=== PATIENT | female | born 1975 | race Caucasian/White ===

== ENCOUNTER → 2016-10-03 | Emergency (ER) | payer OTHER ==
[~2016-10-03] VITALS: Ht 167.6 cm; Wt 104.3 kg
[~2016-10-03] MED LIST: ALPR0.5T3; ATOR1TAB21; BUDE150T; CITA40TA4; FLUO20CA9; GABA-283 PO; IBUP600T26 PO; METO-346 PO; SOMA350T PO; SUBO8MIS; TRAZ50TA
[2016-10-03 15:58] VITALS: BP 111/64
== END | disposition home or self-care (01) ==
LOC: M ED 17:00
DX: S39.012A Strain of muscle, fascia and tendon of lower back, initial encounter (principal); X50.9XXA Other and unspecified overexertion or strenuous movements or postures, initial encounter; Y92.89 Other specified places as the place of occurrence of the external cause; Y93.89 Activity, other specified; Y99.0 Civilian activity done for income or pay; I10 Essential (primary) hypertension; F17.200 Nicotine dependence, unspecified, uncomplicated; Z79.899 Other long term (current) drug therapy

== ENCOUNTER 2016-10-15 18:13 | Emergency (ER) | payer OTHER ==
[~2016-10-15] VITALS: Ht 167.6 cm; Wt 104.3 kg
[2016-10-15 18:14] VITALS: BP 125/81
--- NOTE | 2016-10-16 10:33 | REP ---
PA CHEST WITH LEFT RIBS: 10/15/2016. Clinical history: Left anterior lower rib pain. Findings: No prior study. The lungs are well inflated. The CP angles sharply defined. There is no pleural effusion, lateral pleural thickening or apical scarring. Some minor underlying interstitial changes suggested. Heart not enlarged. Yasemin symmetric. There are two anchors overlying the right shoulder from prior shoulder surgery. No pneumothorax or pleural effusion on either side. Left ribs: Posterior rib articulations were intact. The clavicle, scapula and humerus are unremarkable. There are degenerative disc and marginal osteophyte changes at multiple levels in the thoracic spine. No focal rib lesion, displaced fracture, pleural effusion, pleural thickening or pneumothorax. Impression: 1. No visible or displaced rib fracture, focal rib lesion, effusion or pneumothorax. 2. PA chest without acute finding. Signed by Victor Manuel Chavez MD 10/16/2016 08:21 P
== END 2016-10-15 22:26 | disposition home or self-care (01) ==
LOC: M ED 21:54
DX: S29.011A Strain of muscle and tendon of front wall of thorax, initial encounter (principal); X58.XXXA Exposure to other specified factors, initial encounter; Y92.89 Other specified places as the place of occurrence of the external cause; Y93.89 Activity, other specified; Y99.8 Other external cause status; F11.10 Opioid abuse, uncomplicated; F41.9 Anxiety disorder, unspecified; I10 Essential (primary) hypertension; F17.210 Nicotine dependence, cigarettes, uncomplicated; Z79.899 Other long term (current) drug therapy; F32.9 Major depressive disorder, single episode, unspecified
CPT/HCPCS: 71101; 96372; 99281; J3360

== ENCOUNTER 2018-05-10 11:12 | Emergency (ER) | payer OTHER ==
[2018-05-10] MEDS: KETOROLAC TROMETHAMINE 10 MG TAB PO (11:34)
== END 2018-05-10 12:23 | disposition home or self-care (01) ==
LOC: M ED 11:12
DX: S83.92XA Sprain of unspecified site of left knee, initial encounter (principal); X50.0XXA Overexertion from strenuous movement or load, initial encounter; Y92.009 Unspecified place in unspecified non-institutional (private) residence as the place of occurrence of the external cause; M25.762 Osteophyte, left knee; I10 Essential (primary) hypertension; F11.11 Opioid abuse, in remission; F41.9 Anxiety disorder, unspecified; F33.9 Major depressive disorder, recurrent, unspecified; F17.200 Nicotine dependence, unspecified, uncomplicated; Z79.899 Other long term (current) drug therapy
CPT/HCPCS: 73564

== ENCOUNTER 2018-08-18 10:57 | Emergency (ER) | payer OTHER ==
[~2018-08-18] VITALS: Ht 167.6 cm; Wt 95.5 kg
[~2018-08-18 10:57] MED LIST changes: +FLUO20CA19; -FLUO20CA9; -GABA-283 PO; +GABA-845 PO; +IBUP-1022 PO; -IBUP600T26 PO; +KETO10TAB PO; -TRAZ50TA; +TRAZ50TA PO
[2018-08-18 10:58] VITALS: BP 143/92
[2018-08-18] MEDS ORDERED: TRAZ-163 PO (11:29)
== END 2018-08-18 11:33 | disposition home or self-care (01) ==
LOC: M ED 10:57
DX: Z76.0 Encounter for issue of repeat prescription (principal); I10 Essential (primary) hypertension; F11.10 Opioid abuse, uncomplicated; M54.9 Dorsalgia, unspecified; Z79.899 Other long term (current) drug therapy

== ENCOUNTER → 2018-09-25 | Outpatient (CLI) | payer OTHER ==
[~2018-09-25] MED LIST changes: +TRAZ-163 PO
--- NOTE | 2018-09-25 19:48 | REP ---
MRI left knee without contrast: History: Pain in the left knee. Comparison study: Radiographs from May 10, 2018. Technique: Sagittal axial and coronal imaging planes utilized. T1 and T2-weighted scans were obtained with and without fat saturation. MRI findings: There is a small joint effusion in the suprapatellar bursa. No Fagan's cyst is appreciated. There is a subcortical cyst, 8 mm in greatest diameter, in the posterior aspect the medial tibial plateau beneath the tibial spine. There is some adjacent marrow edema. Cortical and medullary bone signal intensity are otherwise normal. There is moderate chondromalacia in the medial and lateral femoral condyles and in the medial tibial plateau articular cartilage. Lateral tibial plateau articular cartilage shows mild chondromalacia. Patellar articular cartilage shows some partial thickness linear fissuring centrally. The femoral trochlear cartilage is intact. There is evidence of an anteriorly displaced lateral meniscal tear is displaced meniscal material in the anterior joint line. There is no evidence of medial meniscal tear. A small posterior para meniscal cyst is seen however adjacent the posterior horn of the medial meniscus. Anterior cruciate ligament appears disrupted consistent with chronic tear. Posterior cruciate ligament is intact. Patellar and quadriceps tendons appear intact. Medial and lateral collateral ligamentous complexes are intact. Impression: Findings consistent with an anteriorly displaced lateral meniscal tear. Old ACL tear. 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 Small joint effusion. Subcortical cyst in the proximal tibia with some adjacent marrow edema. Electronically Signed by Yonathan Zacarias MD 09/25/2018 09:03 P
== END ==
LOC: M RAD 17:35
PROVIDERS: ATTEND Orthopaedic Surgery Sports Medicine
DX: M94.262 Chondromalacia, left knee (principal); M25.462 Effusion, left knee; M85.462 Solitary bone cyst, left tibia and fibula; Z87.828 Personal history of other (healed) physical injury and trauma

== ENCOUNTER 2020-04-23 12:05 | Emergency (ER) | payer OTHER ==
[~2020-04-23] VITALS: Ht 167.6 cm; Wt 98.7 kg
[~2020-04-23 12:05] MED LIST changes: -FLUO20CA19; +FLUO20CA22; -TRAZ-163 PO; +TRAZ-257 PO
[2020-04-23] MEDS ORDERED: LIDOCAINE 5% (LIDODERM) PATCH TD ONE (12:45)
[2020-04-23] MEDS ORDERED: KETOROLAC 60MG 2ML VIAL IM ONE (12:45)
[2020-04-23] MEDS ORDERED: LIDO5DIS41 TOP (13:30)
[2020-04-23 13:31] VITALS: BP 126/79
[2020-04-23] MEDS ORDERED: **NOTE PATIENT COMMENT** MISC XX SCH (21:00)
== END 2020-04-23 13:39 | disposition home or self-care (01) ==
LOC: M ED 12:05
DX: G89.29 Other chronic pain (principal); M54.5 Low back pain; F17.200 Nicotine dependence, unspecified, uncomplicated; I10 Essential (primary) hypertension; Z79.899 Other long term (current) drug therapy
CPT/HCPCS: 96372; 99283; J1885

== ENCOUNTER → 2022-08-02 | Outpatient (CLI) | payer OTHER ==
[~2022-08-02] MED LIST changes: -CITA40TA4; +CITA40TA7; +GABA-283 PO; -GABA-845 PO; +LIDO5DIS41 TOP
== END ==
LOC: M WHC 11:34
PROVIDERS: ATTEND Obstetrics & Gynecology
DX: Z12.31 Encounter for screening mammogram for malignant neoplasm of breast (principal)

== ENCOUNTER → 2022-08-02 | Outpatient (REF) | payer OTHER | LOC: M PLALAB 12:37 | PROVIDERS: ATTEND Obstetrics & Gynecology | DX: Z01.419 Encounter for gynecological examination (general) (routine) without abnormal findings (principal) ==

== ENCOUNTER 2023-01-07 11:47 | Day surgery (SDC) | payer OTHER ==
[~2023-01-07] VITALS: Ht 167.6 cm; Wt 99.3 kg
[~2023-01-07 11:47] MED LIST changes: +AMLO1TAB25 PO; +BUSP5TA PO; +LIDOCAINE 2% 100MG/5ML SDV (FOR ANES.) As Ordered ONE; +NS 1,000 ML IV ONE; +TRAZ-252 PO; +propofoL 200 MG/20 ML VIAL As Ordered ONE
[2023-01-07] MEDS ORDERED: propofoL 200 MG/20 ML VIAL As Ordered ONE (12:56)
[2023-01-07 13:16] VITALS: TEMP 98.2
[2023-01-07 13:40] VITALS: BP 151/73; O2SAT 97
== END 2023-01-07 13:45 | disposition home or self-care (01) ==
LOC: M OPP 11:47
PROVIDERS: ATTEND Surgery
DX: D12.6 Benign neoplasm of colon, unspecified (principal); R19.5 Other fecal abnormalities; F17.200 Nicotine dependence, unspecified, uncomplicated; Z79.891 Long term (current) use of opiate analgesic; Z79.899 Other long term (current) drug therapy

== ENCOUNTER → 2024-02-15 | Outpatient (REF) | payer OTHER ==
[~2024-02-15] MED LIST changes: +FLUO-365; -FLUO20CA22; -GABA-283 PO; +GABA-284 PO; -LIDOCAINE 2% 100MG/5ML SDV (FOR ANES.) As Ordered ONE; -NS 1,000 ML IV ONE; -propofoL 200 MG/20 ML VIAL As Ordered ONE
[2024-02-15 14:41] LABS: ALBUMIN 4.2 G/DL (3.2-5.2); ALKALINE PHOSPHATASE 59 U/L (46-116); ALT/SGPT 46 U/L (7.0-40); AST/SGOT 32 U/L (<34); BILIRUBIN,TOTAL 0.4 MG/DL (0.3-1.2); BLOOD UREA NITROGEN 11 MG/DL (9-23); CALCIUM LEVEL 9.5 MG/DL (8.5-10.1); CARBON DIOXIDE LEVEL 28 MMOL/L (20-31); CHLORIDE LEVEL 104 MMOL/L (98-107); CHOLESTEROL LEVEL 272 MG/DL (<200); CHOLESTEROL RISK RATIO 5.69 (<5); CREATININE FOR GFR 0.66 MG/DL (0.55-1.30); GLOMERULAR FILTRATION RATE > 60.0 (>58); GLUCOSE, FASTING 101 MG/DL (60-100); HDL CHOLESTEROL 47.8 MG/DL (>40); LDL CHOLESTEROL 189.6 MG/DL (<100); NON-HDL-C 224.2 MG/DL; POTASSIUM SERUM 4.6 MMOL/L (3.5-5.1); SODIUM LEVEL 137 MMOL/L (136-145); TOTAL PROTEIN 7.2 G/DL (5.7-8.2); TRIGLYCERIDES LEVEL 173 MG/DL (<150)
[2024-02-15 14:44] LABS: THYROID STIMULATING HORMONE 1.431 uIU/ML (0.55-4.78)
== END ==
LOC: M LAB REF 12:35
PROVIDERS: ATTEND Family Medicine Addiction Medicine
DX: I10 Essential (primary) hypertension (principal)

== ENCOUNTER → 2024-07-23 | Outpatient (REF) | payer OTHER ==
[2024-07-24 13:24] LABS: THYROID STIMULATING HORMONE 1.436 uIU/ML (0.55-4.78)
[2024-07-24 13:51] LABS: ALBUMIN 4.4 G/DL (3.2-5.2); ALKALINE PHOSPHATASE 62 U/L (35-104); ALT/SGPT 29 U/L (7.0-40); AST/SGOT 24 U/L (<34); BILIRUBIN,TOTAL 0.5 MG/DL (0.3-1.2); BLOOD UREA NITROGEN 10 MG/DL (9-23); CALCIUM LEVEL 9.4 MG/DL (8.5-10.1); CARBON DIOXIDE LEVEL 30 MMOL/L (20-31); CHLORIDE LEVEL 101 MMOL/L (98-107); CHOLESTEROL LEVEL 295 MG/DL (<200); CHOLESTEROL RISK RATIO 4.95 (<5); CREATININE FOR GFR 0.63 MG/DL (0.55-1.30); GLOMERULAR FILTRATION RATE > 60.0 (>58); GLUCOSE, FASTING 91 MG/DL (60-100); HDL CHOLESTEROL 59.5 MG/DL (>40); LDL CHOLESTEROL 193.7 MG/DL (<100); NON-HDL-C 235.5 MG/DL; POTASSIUM SERUM 6.2 MMOL/L (3.5-5.1); SODIUM LEVEL 137 MMOL/L (136-145); TOTAL PROTEIN 7.5 G/DL (5.7-8.2); TRIGLYCERIDES LEVEL 209 MG/DL (<150)
== END ==
LOC: M LAB REF 12:09
PROVIDERS: ATTEND Family Medicine Addiction Medicine
DX: E78.5 Hyperlipidemia, unspecified (principal)

== ENCOUNTER → 2025-03-12 | Outpatient (REF) | payer OTHER ==
[~2025-03-12] MED LIST changes: -IBUP-1022 PO; +IBUP600T42 PO; +LIDO1ADH93 TOP; -LIDO5DIS41 TOP
== END ==
LOC: M WUC 17:15
PROVIDERS: ATTEND Physician Assistant
DX: R30.0 Dysuria (principal)

== ENCOUNTER → 2025-03-14 | Outpatient (REF) | payer OTHER | LOC: M LAB REF 17:21 | PROVIDERS: ATTEND Nurse Practitioner Family | DX: R30.0 Dysuria (principal) ==